=== PATIENT | female | born 2000 | race American Indian/Alaskan Native ===

== ENCOUNTER 2025-03-19 14:43 | Emergency (ER) | payer OTHER, SELFPAY ==
[2025-03-19] VITALS (10 sets, daily range): BP systolic 113–137; BP diastolic 61–77; PULSE 63–77; RESP 10–20; TEMP 36.3–36.7; O2SAT 93–100; BMI 26.6
--- NOTE | 2025-03-19 14:54 | EKG_ITS ---
[address] [address] Test Date: 2025-03-19 Pat Name: Robby Lu Department: Room: Gender: Female Mammalogist: HALIMA : 2000 Requested By: Order Number: [id number] Reading MD: Kraig Pena MD Measurements Intervals [place] Rate: 61 P: 41 TN: 132 QRS: 63 QRSD: 84 T: 54 QT: 434 QTc: 436 Interpretive Statements Normal sinus rhythm Electronically Signed On 03-20-2025 7:41:32 PDT by Kraig Pena MD
--- NOTE | 2025-03-19 15:09 | DI.RAD.S_ITS ---
PROCEDURE: XR CHEST 1V INDICATIONS: cold, cough, congestion TECHNIQUE: One view of the chest was acquired. COMPARISON: [facility], , CHEST 2 VIEW, 03/31/2009, 19:21. FINDINGS: Surgical changes and devices: None. Lungs and pleura: Streaky right basilar opacities. Mediastinum: Mediastinal contours appear normal. Heart size is normal. Bones and chest wall: No suspicious bony lesions. Overlying soft tissues appear unremarkable. IMPRESSION: Streaky right basilar opacity suspicious for developing pneumonia. Dictated by: Selin Regalado M.D. on 03/19/2025 at 15:28 Approved by: Selin Regalado M.D. on 03/19/2025 at 15:28
[2025-03-19] MEDS: SODIUM CHLORIDE 0.9% 1,000 ML 1000 ML IV (15:15)
[2025-03-19 15:22] LABS: Add Manual Diff / Slide Review NO; Basophils Absolute Auto 0 /uL (0-100); Basophils Percent Auto 0.4 % (0-2); Eosinophils Absolute Auto 200 /uL (0-450); Eosinophils Percent Auto 3.7 % (2-4); Hematocrit 37.2 % (36-46); Hemoglobin 12.9 g/dL (12.0-16.0); Lymphocytes Absolute Auto 1400 /uL (1100-4500); Lymphocytes Percent Auto 23.3 % (25-40); Mean Corpuscular HGB Conc 34.7 % (30-36); Mean Corpuscular Hemoglobin 30.7 PG (26-34); Mean Corpuscular Volume 88.5 fL (80-100); Monocytes Absolute Auto 400 /uL (0-900); Monocytes Percent Auto 6.7 % (3-14); Neutrophils Absolute Auto 3800 /uL (1500-7000); Neutrophils Percent Auto 65.9 % (50-75); Platelet Count 276 X10^3/uL (150-400); Red Cell Distribution Width 13.8 % (11.6-14.8); White Blood Cell Count 5.8 X10^3/uL (4.5-11.0)
[2025-03-19 15:31] LABS: Lactate (Lactic Acid) 0.6 mmol/L (0.7-2.1)
[2025-03-19 15:33] LABS: Acetaminophen < 10 ug/mL (10-30); Alanine Aminotransferase 70 IU/L (<35); Albumin 4.1 g/dL (3.5-5.0); Albumin Globulin Ratio 1.4 (1.0-2.8); Alkaline Phosphatase 117 U/L (38-126); Aspartate Aminotransferase 58 IU/L (14-36); BUN Creatinine Ratio 11.5 (6-22); Bilirubin Total 0.5 mg/dL (0.2-1.3); Bilirubin Unconjugated 0.2 mg/dL (0.0-1.1); Blood Urea Nitrogen 6 mg/dL (7-17); Calcium 8.5 mg/dL (8.4-10.2); Carbon Dioxide 26 mmol/L (22-32); Chloride 105 mmol/L (98-107); Estimated Glomerular Filt Rate > 60 mL/min (>60); Ethanol (ETOH) < 10 mg/dL; Glucose 118 mg/dL (70-99); HEMOLYSIS < 15 (0-50); Potassium 4.1 mmol/L (3.4-5.1); Salicylate < 1.0 mg/dL (<20); Sodium 139 mmol/L (137-145); Total Protein 7.1 g/dL (6.3-8.2)
[2025-03-19] MEDS: ALBUTEROL/IPRATROPIUM 3 ML AMPUL INH (15:34)
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
[2025-03-19 16:00] LABS: Pregnancy Test Serum,Qual Negative (Negative)
[2025-03-19 16:05] LABS: Influenza A - CEPHEID Flu A NEGATIVE (NEGATIVE); Influenza B - CEPHEID Flu B NEGATIVE (NEGATIVE); Respiratory Syncytial Virus Negative (Negative)
[2025-03-19 16:06] LABS: COVID-19 CEPHEID 4-PLEX PCR Negative (Negative)
[2025-03-19] MEDS: AZITHROMYCIN 250 MG TABLET 500 MG PO (16:34)
[2025-03-19] MEDS: AMOXICILLIN/CLAV 875/125 MG 1 TAB PO (16:35)
== END 2025-03-19 17:11 | disposition home or self-care (01) ==
PROVIDERS: Emergency Provider Emergency Medicine; PCP Family Medicine
DX: J18.9 Pneumonia, unspecified organism (principal)
CPT/HCPCS: 0241U; 36415; 71045; 80053; 80076; 80320; 80329; 83605; 84703; 85025; 93005; 94640; 96360; 99284; G0480